=== PATIENT | female | born 1970 ===

== ENCOUNTER 2018-12-28 15:27 | Outpatient (REF) | payer OTHER, SELFPAY ==
[2018-12-28 23:11] LABS: TSH (W/Ref FT4) 1.31 uIU/mL (0.36-3.74); Vitamin B12 252 pg/mL (193-986)
[2018-12-28 23:12] LABS: Folate > 20.0 ng/mL (8.6-20.0)
[2018-12-29 16:22] LABS: Estradiol 16 pg/ml
== END 2018-12-28 15:47 ==
LOC: NCHCN 15:27
PROVIDERS: PCP Family Medicine; Visit Provider Family Medicine
DX: R51 Headache (principal); N91.2 Amenorrhea, unspecified; D75.89 Other specified diseases of blood and blood-forming organs
CPT/HCPCS: 82607; 82670; 82746; 83001; 84146; 84443

== ENCOUNTER 2020-03-16 13:51 | Outpatient (REF) | payer OTHER, SELFPAY ==
[2020-03-19 07:28] LABS: Vitamin D 25 Total 38.3 ng/ml (30-100)
== END 2020-03-16 14:11 ==
LOC: NCHCN 13:51
PROVIDERS: PCP Family Medicine; Visit Provider Family Medicine
DX: F41.1 Generalized anxiety disorder (principal); Z00.00 Encounter for general adult medical examination without abnormal findings; E53.8 Deficiency of other specified B group vitamins; Z13.220 Encounter for screening for lipoid disorders
CPT/HCPCS: 82306

== ENCOUNTER 2020-03-22 06:04 | Outpatient (REF) | payer OTHER, SELFPAY ==
[2020-03-22 22:25] LABS: Calculated LDL 216 mg/dL (<100); Cholesterol 311 mg/dL (<200); HDL Cholesterol 82 mg/dL (40-60); Triglyceride 65 mg/dL (<150); Vitamin B12 271 pg/mL (193-986)
== END 2020-03-22 06:24 ==
LOC: NCHCN 06:04
PROVIDERS: PCP Family Medicine; Visit Provider Family Medicine
DX: E53.8 Deficiency of other specified B group vitamins (principal)
CPT/HCPCS: 80061; 82607

== ENCOUNTER 2023-04-08 19:51 | Outpatient (REF) | payer OTHER, SELFPAY ==
[2023-04-08 21:41] LABS: TSH (W/Ref FT4) 1.66 uIU/mL (0.36-3.74)
== END 2023-04-08 19:52 | disposition home or self-care (01) ==
LOC: NCHCN 19:51
PROVIDERS: PCP Family Medicine; Visit Provider Physician Assistant
DX: R53.83 Other fatigue (principal); Z13.29 Encounter for screening for other suspected endocrine disorder
CPT/HCPCS: 84443

== ENCOUNTER 2024-07-15 11:08 | Outpatient (REF) | payer BC, SELFPAY ==
--- NOTE | 2024-07-15 09:30 | PAPFT_PTH ---
PATIENT: Margarita Hernandez LOC: [facility] U#:[id number] AGE/SX: 54/F ROOM: RE07/15/[address]: Americo Cates : 1970 BED: DIS: 07/15/2024 SPEC #: [id number] RECD: 07/15/24 17:32 STATUS: SILVESTRE REDio #: [id number] RUBIA: 07/15/24 09:[address]: Americo Cates DEPT: [facility] Cytology RECD BY: Bethany Flores Tissues: 1 - CX/ENDOCX FOR PAP SMEARS Procedures: PAP THIN PREP/[facility] Screening HPV DNA PROBE Comments: [id number] (HPV 16 & 18/45)
== END 2024-07-15 11:09 | disposition home or self-care (01) ==
LOC: NCHCN 11:08
PROVIDERS: PCP Family Medicine; Visit Provider Family Medicine
DX: Z11.51 Encounter for screening for human papillomavirus (HPV) (principal); Z01.419 Encounter for gynecological examination (general) (routine) without abnormal findings
CPT/HCPCS: 88142; 87624